=== PATIENT | male | born 1960 | race Caucasian/White ===

== ENCOUNTER 2017-08-20 14:57 | Emergency (ER) | payer BC ==
[2017-08-20] MEDS ORDERED: OXYCODONE HCL IR 5 MG TABLET PO ONE (16:26)
--- NOTE | 2017-08-20 16:28 | ER Document Report ---
ED Medical Screen (RME) - General Chief Complaint: Fall Injury Stated Complaint: FALL / ARM INJURY Time Seen by Provider: 08/20/17 16:18 Notes: RAPID MEDICAL EVALUATION DISCLOSURE I have seen this patient as part of a Rapid Medical Evaluation and, if applicable, placed any initially appropriate orders. The patient will be seen and fully evaluated, including a full history and physical exam, by a provider ( in Main ED or Fast Track) when a room becomes available. 57-year-old male here status post fall out of a tree where he was cutting limbs. This occurred just prior to arrival. The fall was approximately 10 feet out of the tree. He did not hit his head or neck he states. He is complaining of pain to the left fourth finger where there is a deformity. He is also complaining of pain to the left elbow. He is complaining of some soreness to the left side of his body. He did not have any loss of consciousness. He does not remember when his last tetanus booster was given to him. EXAM There is no significant TTP of the left lateral chest wall flank or hip There is TTP and deformity of the left fourth finger There is some TTP of the left elbow at the olecranon There is a 1 cm superficial laceration to the left elbow in the area of the olecranon Normal steady gait TRAVEL OUTSIDE OF THE [place] IN LAST 30 DAYS: No - Related Data Allergies/Adverse Reactions: No Known Allergies Allergy (Verified 08/20/17 15:15) Past Medical History - Past Medical History Cardiac Medical History: Reports: Hx Hypercholesterolemia, Hx Hypertension - Immunizations Hx Diphtheria, Pertussis, Tetanus Vaccination: Yes
--- NOTE | 2017-08-20 17:06 | RADIOLOGY REPORT (SQ) ---
EXAM DESCRIPTION: HAND LEFT 3 VIEWS COMPLETED DATE/TIME: 08/20/2017 4:53 pm REASON FOR STUDY: s/p fall COMPARISON: Left hand three views 08/06/2008 EXAM PARAMETERS: NUMBER OF VIEWS: Three views. TECHNIQUE: AP, lateral and oblique radiographic images acquired of the left hand. LIMITATIONS: None. FINDINGS: MINERALIZATION: Normal. BONES: No acute fracture or dislocation. No worrisome bone lesions. JOINTS: There is dorsal dislocation of the left 4th middle phalanx at the PIP joint. This is best sh own on lateral view. 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 SOFT TISSUES: 4th finger soft tissue swelling. No foreign body. OTHER: No other significant finding. IMPRESSION: Dorsal dislocation of the middle phalanx 4th finger at the PIP joint with soft tissue sw elling. TECHNICAL DOCUMENTATION: JOB ID: [id number] [employer]- All Rights Reserved Reading location - IP/workstation name: [email or web address]
--- NOTE | 2017-08-20 17:07 | RADIOLOGY REPORT (SQ) ---
EXAM DESCRIPTION: ELBOW LEFT OVER 2 VIEWS COMPLETED DATE/TIME: 08/20/2017 4:53 pm REASON FOR STUDY: s/p fall COMPARISON: None. NUMBER OF VIEWS: Four views. TECHNIQUE: AP, lateral, and both oblique radiographic images acquired of the left elbow. LIMITATIONS: None. FINDINGS: MINERALIZATION: Normal. BONES: No acute fracture or dislocation. No worrisome bone lesions. Supracondylar spur. JOINT: Mild osteoarthritis. No significant joint effusion. SOFT TISSUES: Posteromedial soft tissue swelling. OTHER: No other significant finding. IMPRESSION: SOFT TISSUE SWELLING WITHOUT FRACTURE. ADDITIONAL CHRONIC CHANGES ABOVE. TECHNICAL DOCUMENTATION: JOB ID: [id number] [employer]- All Rights Reserved Reading location - IP/workstation name: [email or web address]
[2017-08-20] MEDS ORDERED: LIDOCAINE 2% INJ (20 MG/ML) 20 ML MDV INJ ONE (18:56)
[2017-08-20] MEDS ORDERED: LIDOCAINE 1% INJ-PF (10 MG/ML) 30 ML SDV INJ ONE (19:08)
--- NOTE | 2017-08-20 19:08 | ER Document Report ---
ED General - General Chief Complaint: Fall Injury Stated Complaint: FALL / ARM INJURY Time Seen by Provider: 08/20/17 16:18 Mode of Arrival: Ambulatory Information source: Patient Notes: 57-year male with hypertension, hypothyroid presents after falling off a ladder while cutting branches off a tree. This occurred just prior to arrival. The fall was approximately 10 feet out of the tree. He did not hit his head or neck he states. Patient denies loss of consciousness. He is complaining of pain to the left fourth finger where there is a deformity. He is also complaining of pain to the left elbow. He is complaining of some soreness to the left side of his body. Patient was able to ambulate after the fall and took a cab to the emergency department. He states he wants to go to urgent care but they told him they do not perform sutures. TRAVEL OUTSIDE OF THE [place] IN LAST 30 DAYS: No - HPI Onset: Just prior to arrival Onset/Duration: Sudden Quality of pain: Achy, Throbbing Severity: Moderate Associated symptoms: None Exacerbated by: Movement Relieved by: Remaining still Similar symptoms previously: No Recently seen / treated by doctor: No - Related Data Allergies/Adverse Reactions: No Known Allergies Allergy (Verified 08/20/17 18:30) Past Medical History - General Information source: Patient - Social History Smoking Status: Former Smoker Chew tobacco use (# tins/day): No Frequency of alcohol use: Occasional Drug Abuse: None Lives with: Family Family History: Other - Unable to obtain Patient has suicidal ideation: No Patient has homicidal ideation: No - Past Medical History Cardiac Medical History: Reports: Hx Hypercholesterolemia, Hx Hypertension Renal/ Medical History: Denies: Hx Peritoneal Dialysis - Immunizations Hx Diphtheria, Pertussis, Tetanus Vaccination: Yes Review of Systems - Review of Systems Notes: REVIEW OF SYSTEMS: CONSTITUTIONAL : Denies fever, chills, or sweats. Denies recent illness. Denies weight loss, recent hospitalizations. EENT: Denies visula changes, eye pain. Denies nasal or sinus congestion or discharge. Denies sore throat, oral lesions, difficulty swallowing. CARDIOVASCULAR: Denies chest pain. Denies palpitations or racing or irregular heart beat. Denies lower extremity edema. RESPIRATORY: Denies cough, cold, or chest congestion. Denies shortness of breath, difficulty breathing, or wheezing. GASTROINTESTINAL: Denies abdominal pain or distention. Denies nausea, vomiting , or diarrhea. Denies blood in vomitus, stools, or per rectum. Denies black, tarry stools. Denies constipation. GENITOURINARY: Denies difficulty urinating, painful urination, burning, frequency, blood in urine, or vaginal discharge. MUSCULOSKELETAL: admits to left elbow pain, left fourth finger pain, left hip pain. SKIN: Denies rash, lesions or sores. HEMATOLOGIC : Denies easy bruising or bleeding. LYMPHATIC: Denies swollen, enlarged glands. NEUROLOGICAL: Denies confusion or altered mental status. Denies passing out or loss of consciousness. Denies dizziness or lightheadedness. Denies headache. Denies weakness or paralysis or loss of use of either side. Denies problems with gait or speech. Denies sensory loss, numbness, or tingling. Denies seizures. PSYCHIATRIC: Denies anxiety or stress. Denies depression, suicidal ideation, or homicidal ideation. Physical Exam - Vital signs Vitals: Temp Pulse Resp BP Pulse Ox 98.2 F 84 18 120/74 93 08/20/17 17:20 08/20/17 17:20 08/20/17 17:20 08/20/17 17:20 08/20/17 17:20 - Notes Notes: PHYSICAL EXAMINATION: GENERAL: Well-appearing, well-nourished and in no acute distress. HEAD: Atraumatic, normocephalic. EYES: Pupils equal round and reactive to light, extraocular movements intact, sclera anicteric, conjunctiva are normal. ENT: Nares patent, oropharynx clear without exudates. Moist mucous membranes. NECK: Normal range of motion, supple without lymphadenopathy. No midline tenderness, deformities. LUNGS: Breath sounds clear to auscultation bilaterally and equal. No wheezes rales or rhonchi. HEART: Regular rate and rhythm without murmurs ABDOMEN: Soft, nontender, nondistended abdomen. No guarding, no rebound. No masses appreciated. Musculoskeletal: Obvious deformity to the left fourth finger. 2 cm laceration to the left elbow. Radial pulse intact. Cap refill less than 2 seconds. Sensation intact. NEUROLOGICAL: Cranial nerves grossly intact. Normal speech, normal gait. Normal sensory, motor exams PSYCH: Normal mood, normal affect. SKIN: Warm, Dry, normal turgor, no rashes or lesions noted. Superficial linear abrasion 2 on the left upper back Course - Re-evaluation Re-evalutation: Elbow X-Ray 08/20/17 16:26 IMPRESSION: SOFT TISSUE SWELLING WITHOUT FRACTURE. ADDITIONAL CHRONIC CHANGES ABOVE. Pelvis X-Ray 08/20/17 19:04 IMPRESSION: No acute findings. Hand X-Ray 08/20/17 20:14 IMPRESSION: Relocated 4th PIP. No fracture identified. 08/21/17 15:02 57-year-old male presents after falling off a ladder. Patient denies head injury, loss of consciousness. Upon arrival vitals are reviewed. Patient does not appear toxic or dehydrated. He is in no acute distress. Exam is significant for left elbow swelling, ecchymosis as well as a 2 cm laceration over the olecranon. Patient also has an obvious deformity to his left fourth finger. Suture repair was performed. One mattress and 2 simple sutures were placed without complication. Finger block performed using 5 cc of lidocaine was used to reduce the left fourth finger. This was done successfully and without complication. Patient was administered morphine during his ED course. He was discharged home in stable condition with a prescription for Motrin and instructions to ice the areas of pain and return in 10-12 days for suture removal. Patient provided the opportunity to ask questions, and express concerns. Discharge instructions discussed. Patient is agreeable with discharge home. Return indications explained and discussed with the patient who displays understanding. Patient encouraged to return to the emergency department immediately with any concerns. - Vital Signs Vital signs: Temp Pulse Resp BP Pulse Ox 98.1 F 84 18 106/82 98 08/20/17 21:23 08/20/17 17:20 08/20/17 21:23 08/20/17 21:23 08/20/17 21:23 - Diagnostic Test Radiology reviewed: Image reviewed, Reports reviewed Procedures - Joint Reduction/Fracture Care Left Finger 4th digit Time completed: 20:15 Consent obtained: Yes Conscious sedation: No Pre-procedure NV exam: Yes Fracture: Closed Post-procedure NV exam: Yes - within normal limits Post-reduction x-ray: Joint reduced Reduction attempts: 1 Complications: No - Laceration/Wound Repair Left Elbow Time completed: 15:01 Wound length (cm): 2 Wound's Depth, Shape: Superficial Laceration pre-procedure: Sterile PPE donned, Sterile drapes applied, Shur- Clens applied Anesthetic type: 2% Lidocaine Volume Anesthetic (mLs): 3 Wound explored: Clean Irrigated w/ Saline (mLs): 500 Wound Repaired With: Sutures Suture Size/Type: 4:0, Ethilon Number of Sutures: 3 Layer Closure?: No Post-procedure wound care: Sterile dressing applied Post-procedure NV exam normal: Yes - Within normal limits Complications: No Discharge - Discharge Clinical Impression: Fall Finger dislocation Qualifiers: Encounter type: initial encounter Qualified Code(s): S63.259A - Unspecified dislocation of unspecified finger, initial encounter Elbow laceration Qualifiers: Encounter type: initial encounter Laterality: left Qualified Code(s): S51.012A - Laceration without foreign body of left elbow, initial encounter Contusion, hip Qualifiers: Encounter type: initial encounter Laterality: left Qualified Code(s): S70.02XA - Contusion of left hip, initial encounter Back abrasion Qualifiers: Encounter type: initial encounter Laterality: left Qualified Code(s): S20.412A - Abrasion of left back wall of thorax, initial encounter Disposition: HOME, SELF-CARE Instructions: Abrasions ([facility]), Finger Dislocation ([facility]), Laceration Care ([facility]) , Tetanus Immunization Given ([facility]) Additional Instructions: Follow up with your physician tomorrow for further care or return to the ED IMMEDIATELY if symptoms worsen or new concerns occur. If you cannot afford to follow up with your primary care physician a list of low cost clinics have been provided at the end of your discharge papers as well. Please ice the areas of pain. Please return to the emergency department or your primary care physician in 12 days for suture removal. Prescriptions: Hydrocodone/Acetaminophen [Mcloud 5-325 mg Tablet] 1 tab PO Q6H #10 tablet Ibuprofen [Motrin 600 Mg Tablet] 600 mg PO TID #15 tablet Referrals: ROSE SAMSON DO [Primary Care Provider] - Follow up as needed
--- NOTE | 2017-08-20 19:27 | RADIOLOGY REPORT (SQ) ---
EXAM DESCRIPTION: PELVIS AP COMPLETED DATE/TIME: 08/20/2017 7:19 pm REASON FOR STUDY: fall pain COMPARISON: None. NUMBER OF VIEWS: One view TECHNIQUE: AP Pelvis LIMITATIONS: None. FINDINGS: MINERALIZATION: Normal. HIPS: No acute fracture or dislocation. No worrisome bone lesions. PELVIS AND SACRUM: No acute fracture or dislocation. No worrisome bone lesions. PUBIS AND ISCHIUM: No acute fracture. LOWER LUMBAR SPINE: No significant findings as visualized. SOFT TISSUES: No findings. OTHER: No other significant finding. IMPRESSION: No acute findings. TECHNICAL DOCUMENTATION: JOB ID: [id number] 2010 [employer]- All Rights Reserved Reading location - IP/workstation name: [email or web address]
[2017-08-20] MEDS ORDERED: MORPHINE SULFATE 10 MG/ML INJ IV ONE (19:53)
[2017-08-20] MEDS ORDERED: ONDANSETRON HCL INJ/PF 4 MG/2 ML SDV IV ONE (19:53)
[2017-08-20] MEDS ORDERED: DIPH/PERTUSS(ACELL)/TETANUS VAC/PF 0.5 ML SYR (>=10YO) IM ONE (20:15)
--- NOTE | 2017-08-20 20:53 | RADIOLOGY REPORT (SQ) ---
EXAM DESCRIPTION: HAND LEFT 2 VIEWS COMPLETED DATE/TIME: 08/20/2017 8:35 pm REASON FOR STUDY: post reduction COMPARISON: Earlier same day EXAM PARAMETERS: NUMBER OF VIEWS: Three views. TECHNIQUE: AP, lateral and oblique radiographic images acquired of the left hand. LIMITATIONS: None. FINDINGS: Relocated 4th PIP. No fracture identified. OTHER: No other significant finding. IMPRESSION: Relocated 4th PIP. No fracture identified. TECHNICAL DOCUMENTATION: JOB ID: [id number] 2010 [employer]- All Rights Reserved Reading location - IP/workstation name: [email or web address]
[2017-08-20 21:30] VITALS: BP 106/82
== END 2017-08-20 21:30 | disposition home or self-care (01) ==
LOC: ER 14:57
PROC: 0HQGXZZ Repair Left Hand Skin, External Approach (ICD-10-PCS; principal; 2017-08-20)
DX: S20.412A Abrasion of left back wall of thorax, initial encounter (principal); S70.02XA Contusion of left hip, initial encounter; S51.012A Laceration without foreign body of left elbow, initial encounter; S63.259A Unspecified dislocation of unspecified finger, initial encounter; W11.XXXA Fall on and from ladder, initial encounter; Z23 Encounter for immunization; E78.00 Pure hypercholesterolemia, unspecified; I10 Essential (primary) hypertension; Z87.891 Personal history of nicotine dependence
CPT/HCPCS: 99283; 90471; 96374; 73080; 73130; 73120; 72170; 90715; 12001; J3490; J2270

== ENCOUNTER → 2017-09-10 | Outpatient (CLI) | payer BC ==
--- NOTE | 2017-09-10 09:28 | RADIOLOGY REPORT (SQ) ---
EXAM DESCRIPTION: U/S ABDOMEN LIMITED W/O DOP COMPLETED DATE/TIME: 09/10/2017 9:06 am REASON FOR STUDY: EPIGASTRIC PAIN (R10.13) R10.13 EPIGASTRIC PAIN COMPARISON: CT chest abdomen pelvis 09/14/2011 TECHNIQUE: Dynamic and static grayscale images acquired of the abdomen and recorded on PACS. Additio nal selected color Doppler and spectral images recorded. LIMITATIONS: Midline bowel gas, large body habitus FINDINGS: PANCREAS: Not visualized LIVER: No masses. Echotexture normal. LIVER VASCULATURE: Normal directional flow of the main portal vein and hepatic veins. GALLBLADDER: Multiple stones. No definite gallbladder wall thickening or pericholecystic fluid. ULTRASOUND-DETECTED DAUGHERTY'S SIGN: Negative. INTRAHEPATIC DUCTS AND COMMON DUCT: CBD and intrahepatic ducts normal caliber. Distal common duct no t well seen due to duodenum gas. INFERIOR VENA CAVA: Not well seen AORTA: Upper half of the abdominal aorta difficult to visualize. Distal abdominal aorta, proximal il iac vessels are normal caliber. RIGHT KIDNEY: Normal size. Normal echogenicity. No solid or suspicious masses. No hydronephrosis. No calcifications. PERITONEAL AND RIGHT PLEURAL SPACE: No ascites or effusions. OTHER: No other significant findings. IMPRESSION: Tiny stones in the gallbladder without gallbladder wall thickening or pericholecystic fl uid. TECHNICAL DOCUMENTATION: JOB ID: [id number] [employer]- All Rights Reserved Reading location - IP/workstation name: [email or web address]
== END ==
LOC: RAD 07:55
PROVIDERS: ATTEND Internal Medicine Gastroenterology
DX: K80.80 Other cholelithiasis without obstruction (principal); R10.13 Epigastric pain
CPT/HCPCS: 76705